=== PATIENT | female | born 2000 | race Caucasian/White ===

== ENCOUNTER 2021-12-28 20:32 | Emergency (ER) | payer MEDICAID ==
[~2021-12-28] VITALS: Ht 165.1 cm; Wt 145.5 kg
--- NOTE | 2021-12-28 20:58 | PHYS DOC ---
Past History Past Medical History: Anxiety, Diabetes Past Medical History G4, C x 1- induction 35 weeks eclampsia, 2 Miscarry, Hx. of Eclapsia, Hx ITP , PTSD, General Adult EDM: Chief Complaint: ABDOMINAL PAIN IN HPI: HPI: ".. I am having some abdomen pain... down here in my pelvis.. I am about 9 weeks.... My doctor clinic said to come in.. because I was a high risk .. because of prior eclampsia.. DM .... I plan to delivery at [facility]..." Patient is a 21 year old female who presents with above hx and complaints lower pelvic cramping and pain. Patient also complaining of some thigh pain. Patient is 4, term 1 because of eclampsia at 35 weeks, 2 miscarriages. 1 lifetime sex partners no history of STDs. No history of trauma. No history of recent travel. No history of severe ill contacts. Patient plans to deliver at [facility]. Normally follows with at [facility].. Patient currently estimates she is at 9 weeks. Has had 1 ultrasound. Too early for cardiac activity. Patient does have a past medical history of anxiety, depression, PTSD, idiopathic thrombocytopenic, diabetes, eclampsia, morbid obesity. Patient has had COVID vaccination x2 [email or web address]. Has not had flu vaccination because she has some sensitivity to it. Currently the 8-month-old is with her sister. Review of Systems: Review of Systems: Constitutional: Denies fever or chills Eyes: Denies change in visual acuity HENT: Denies nasal congestion or sore throat Respiratory: Denies cough or shortness of breath Cardiovascular: Denies chest pain or edema GI: Complains of abdominal pain, nausea. Denies, vomiting, bloody stools or diarrhea : Denies dysuria Musculoskeletal: Denies back pain or joint pain Integument: Denies rash Neurologic: Denies headache, focal weakness or sensory changes Endocrine: Denies polyuria or polydipsia Lymphatic: Denies swollen glands Psychiatric: Denies depression or anxiety Family History: Family History: Noncontributory to presentation Current Medications: Current Meds: See nursing for home meds Allergies: Allergies: No known significant drug allergies Physical Exam: PE: Constitutional: moderate acute distress, non-toxic appearance. [] HENT: Normocephalic, atraumatic, bilateral external ears normal, oropharynx moist, no oral exudates, nose normal. [] Eyes: PERRLA, EOMI, conjunctiva normal, no discharge. Glasses Neck: Normal range of motion, no tenderness, supple, no stridor. [More than 17 inches circumference] Cardiovascular: Tachycardia rate regular rhythm, no murmur [] Lungs & Thorax: Bilateral breath sounds equal apex on auscultation [] Abdomen: Bowel sounds normal, soft, no tenderness, no masses, no pulsatile masses. Obese. scar. Pelvic exam no active bleeding. No cervical motion tenderness. Scant discharge. Hard stool in rectal vault. Skin: Warm, dry, no erythema, no rash. [] Back: No tenderness, no CVA tenderness. [] Extremities: No tenderness, no cyanosis, no clubbing, ROM intact, trace ankle edema. [] Neurologic: Alert and oriented X 3, moves all extremities on request, does have distal sensory,, no focal deficits noted. [] DTRs +2 patella and brachial. Psychologic: Affect anxious, judgement normal, mood normal. [] EKG: EKG: My interpretation EKG shows a sinus tachycardia rhythm at 105. Bimodal P waves, nonspecific T wave changes. But no findings acute STEMI of contralateral changes. Time of EKG is 2208 hrs. Radiology/Procedures: Radiology/Procedures: [][place] [id number] IMAGING REPORT Signed PATIENT: GRACIE RODRIGUEZ ACCOUNT: [id number] : 2000 LOCATION: ER AGE: 21 SEX: F EXAM STATUS: REG ER ORD. PHYSICIAN: CHERRIE LYNN MD REASON: abdomen pain, est. 9wk, hx prior eclampsia PROCEDURE: PREG 1ST TRIMESTER OB ultrasound less than 14 weeks HISTORY: Abdominal pain Sonographic examination of the was performed and multiple static image s were obtained. There is a single live intrauterine comparison purposes confirmed at 175 bpm. The crown-rump length of 2.8 cm corresponds with a 9 week 4 day gestational age estimated to be confinement of July 30, 2022. The LMP of 10/27/2021 correspon ds to 9 weeks 0 day gestational age is estimated confinement of August 03, 2022. Visualized structures is limited this early gestational age. IMPRESSION: 1. Single live intrauterine at 9 weeks 0 days gestational age by LMP measures 9 weeks 4 days gestational age by ultrasound. Discrepancy could be secondary to an inaccurate LMP. 2. No abnormality identified. A short-term follow-up ultrasound could be performed if clinically indicated a limited structural survey would be performed at 18-21 weeks gestational age. Electronically signed by: Zane Estrada III, MD (12/29/2021 12:32 AM) [facility] DICTATED AND SIGNED BY: ZANE ESTRADA III, MD DATE: 12/29/2128 CC: CHERRIE LYNN MD; PCP,UNKNOWN ~ Heart Score: C/O Chest Pain: No Risk Factors: Risk Factors: DM, Current or recent (<one month) smoker, HTN, HLP, family history of CAD, obesity. Risk Scores: Score 0 - 3: 2.5% MACE over next 6 weeks - Discharge Home Score 4 - 6: 20.3% MACE over next 6 weeks - Admit for Clinical Observation Score 7 - 10: 72.7% MACE over next 6 weeks - Early Invasive Strategies Course & Med Decision Making: Course & Med Decision Making Pertinent Labs and Imaging studies reviewed. (See chart for details) Pt. reports now she is A+ , declining blood draw for Blood type and Rh. ( Not draw of lst draw. ) Pt.has not required Rh prophylaxis on previous delivery and miscarriages. Father is O positive +. Patient follow-up urine culture. Patient take Keflex 500 mg 3 times a day.. Recommend since patient is a high risk if further problems follow-up at [facility] where she plans to deliver. Impression: 1. Abdomen Pain 2. UTI 3. G4, Mis 2, for Eclampsia at 35 wk 4. Hypertension 5. Hx. DM 6. Hgb= 13.3 7. IUP 9 weeks 4 days 8. BHCG= 82,233 9. Morbid obesity - BMI 53.4 [] Dragon Disclaimer: Jet Disclaimer: This electronic medical record was generated, in whole or in part, using a voice recognition dictation system. Departure Departure: Referrals: PCP,UNKNOWN (PCP) Scripts Cephalexin (KEFLEX) 500 Mg Capsule 500 MG PO TID for UTI for 7 Days, #21 CAP Prov: CHERRIE LYNN MD 12/28/21 Dragon Disclaimer This chart was dictated in whole or in part using Voice Recognition software in a busy, high-work load, and often noisy Emergency Department environment. It may contain unintended and wholly unrecognized errors or omissions. Dragon Disclaimer This chart was dictated in whole or in part using Voice Recognition software in a busy, high-work load, and often noisy Emergency Department environment. It may contain unintended and wholly unrecognized errors or omissions. CHERRIE LYNN MD December 28, 2021 20:58
[2021-12-28] MEDS ORDERED: FAMOTIDINE 20 MG/2 ML VIAL IVP ONE (21:00)
[2021-12-28] MEDS ORDERED: IV RINGERS SOLUTION,LACTATED 1,000 ML IV SCH (21:00)
[2021-12-28] MEDS ORDERED: ONDANSETRON PF 4 MG/2 ML VIAL. IVP ONE (21:00)
[2021-12-28 22:18] LABS: BARBITURATES NEG (NEG); BENZODIAZEPINES NEG (NEG); CANNABINOIDS NEG (NEG); COCAINE NEG (NEG); METHADONE NEG (NEG); OPIATES NEG (NEG); PHENCYCLIDINE NEG (NEG)
[2021-12-28 22:21] LABS: CLARITY,URINE CLEAR; COLOR,URINE YELLOW; GLUCOSE,URINE NEG (NEG); NITRITE,URINE NEG (NEG); RBC,URINE 20-40 /HPF (0-2); UROBILINOGEN,URINE 0.2 mg/dL (0.2 mg/dL)
[2021-12-28 22:22] LABS: BACTERIA,URINE FEW /HPF (0-FEW); SQUAMOUS EPITHELIAL CELL,UR MOD /LPF; WBC,URINE >40 /HPF (0-4)
[2021-12-28 22:28] LABS: AMPHETAMINE/METHAMPHETAMINE NEG (NEG)
[2021-12-28 22:53] LABS: BASO # 0.1 x10^3/uL (0.0-0.2); BASO % 1 % (0-3); EOS # 0.2 x10^3/uL (0.0-0.7); EOS % 2 % (0-3); HEMATOCRIT 39.8 % (36.0-47.0); HEMOGLOBIN 13.3 g/dL (12.0-15.5); LYMPH # 2.7 x10^3/uL (1.0-4.8); LYMPH % 25 % (24-48); MEAN CORPUSCULAR HEMOGLOBIN 27 pg (25-35); MEAN CORPUSCULAR HGB CONC 33 g/dL (31-37); MEAN CORPUSCULAR VOLUME 80 fL (79-100); MONO # 0.7 x10^3/uL (0.0-1.1); MONO % 6 % (0-9); NEUT # 7.1 x10^3uL (1.8-7.7); NEUT % 66 % (31-73); PLATELET COUNT 387 x10^3/uL (140-400); RED BLOOD COUNT 4.99 x10^6/uL (3.50-5.40); WHITE BLOOD COUNT 10.8 x10^3/uL (4.0-11.0)
[2021-12-28] MEDS ORDERED: CEPHALEXIN 250 MG CAPSULE PO ONE (23:00)
[2021-12-28 23:05] LABS: U PREG PATIENT POSITIVE (NEG)
[2021-12-28 23:07] LABS: ANION GAP 11 (6-14); BLOOD UREA NITROGEN 19 mg/dL (7-20); CALCIUM 9.1 mg/dL (8.5-10.1); CARBON DIOXIDE 26 mmol/L (21-32); CHLORIDE 103 mmol/L (98-107); CREATININE 0.5 mg/dL (0.6-1.0); GFR 154.3; GLUCOSE 96 mg/dL (70-99); SODIUM 140 mmol/L (136-145)
[2021-12-28 23:13] LABS: ALK PHOS 60 U/L (46-116); ALT (SGPT) 35 U/L (14-59); AST (SGOT) 23 U/L (15-37); LIPASE 171 U/L (73-393); TOTAL BILIRUBIN 0.2 mg/dL (0.2-1.0); TOTAL PROTEIN 6.6 g/dL (6.4-8.2)
[2021-12-28 23:19] LABS: DIRECT BILIRUBIN < 0.1 mg/dL (0.0-0.2)
[2021-12-28] MEDS ORDERED: CEPH500C PO (23:50)
[2021-12-29 00:31] VITALS: BP 126/55
--- NOTE | 2021-12-29 00:35 | RAD ---
OB ultrasound less than 14 weeks HISTORY: Abdominal pain Sonographic examination of the was performed and multiple static images were obtained. There is a single live intrauterine comparison purposes confirmed at 175 bpm. The crown-rump length o f 2.8 cm corresponds with a 9 week 4 day gestational age estimated to be confinement of July 30, 2022. The LMP of 10/27/2021 corresponds to 9 weeks 0 day gestational age is estimated confinement of D 2021. Visualized structures is limited this early gestational age. IMPRESSION: 1. Single live intrauterine at 9 weeks 0 days gestational age by LMP measures 9 weeks 4 day s gestational age by ultrasound. Discrepancy could be secondary to an inaccurate LMP. 2. No abnormality identified. A short-term follow-up ultrasound could be performed if clinically marlena cated a limited structural survey would be performed at 18-21 weeks gestational age. Electronically signed by: Juvenal Woods III, MD (12/29/2021 12:32 AM) [facility]
[2021-12-30 18:10] LABS: CHLAMYDIA PROBE Negative (Negative)
== END 2021-12-29 00:50 | disposition home or self-care (01) ==
LOC: ER 20:32
DX: O23.41 Unspecified infection of urinary tract in pregnancy, first trimester (principal); N39.0 Urinary tract infection, site not specified; O16.1 Unspecified maternal hypertension, first trimester; O24.911 Unspecified diabetes mellitus in pregnancy, first trimester; E66.01 Morbid (severe) obesity due to excess calories; Z3A.09 9 weeks gestation of pregnancy; Z68.43 Body mass index [BMI] 50.0-59.9, adult
CPT/HCPCS: 36415; 76801; 80048; 80076; 80307; 81001; 81025; 82550; 83690; 84702; 85025; 85610; 85730; 87086; 87491; 87591; 93005; 96360; 99285; J7120; Q0111; 99284